=== PATIENT | female | born 1990 | race African-American/Black ===

== ENCOUNTER 2024-10-09 08:58 | Emergency (ER) | payer SELFPAY ==
[~2024-10-09] VITALS: Ht 162.6 cm; Wt 127.1 kg
[~2024-10-09 08:58] MED LIST: AMOX TR-K CLV1 EAC2 PO; BROMFED DM COU118 ML PO; PROVENTIL HFA6.7 GM INH
[2024-10-09] MEDS ORDERED: VENTOLIN HFA18 GM INH (09:21)
[2024-10-09] MEDS ORDERED: PREDNISONE20 MG PO (09:22)
[2024-10-09] MEDS ORDERED: AMOXICILLIN500 MG PO (09:22)
[2024-10-09 09:37] VITALS: PULSE 70; RESP 18; TEMP 97.9; O2SAT 98
== END 2024-10-09 09:37 | disposition home or self-care (01) ==
LOC: FSED 09:09
DX: R05.9 Cough, unspecified (principal); J20.9 Acute bronchitis, unspecified
CPT/HCPCS: 99283

== ENCOUNTER 2024-12-29 13:35 | Emergency (ER) | payer SELFPAY ==
[~2024-12-29] VITALS: Ht 162.6 cm; Wt 128.5 kg
[~2024-12-29 13:35] MED LIST changes: +AMOXICILLIN500 MG PO; +PREDNISONE20 MG PO; +VENTOLIN HFA18 GM INH
[2024-12-29 13:51] VITALS: PULSE 97; RESP 18; TEMP 99.3; O2SAT 96
[2024-12-29] MEDS ORDERED: IBUPROFEN200 MG PO (16:56)
== END 2024-12-29 14:28 | disposition home or self-care (01) ==
LOC: FSED 13:52
DX: M25.512 Pain in left shoulder (principal); S60.221A Contusion of right hand, initial encounter; V53.5XXA Driver of pick-up truck or van injured in collision with car, pick-up truck or van in traffic accident, initial encounter; Y92.488 Other paved roadways as the place of occurrence of the external cause; E66.9 Obesity, unspecified
CPT/HCPCS: 99283